=== PATIENT | male | born 1945 | race Hispanic/Latino ===

== ENCOUNTER 2019-02-04 05:30 | Day surgery (SDC) | payer MEDICARE ==
[~2019-02-04] VITALS: Ht 162.6 cm; Wt 85.3 kg
[2019-02-04] MEDS ORDERED: SODIUM CHLORIDE 0.9% 1000ML 1,000 ML IV ONE (05:43)
--- NOTE | 2019-02-04 06:30 | NUR ---
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 REPORT GIVEN TO LUCIAN IN ER
[2019-02-04] MEDS ORDERED: HYDR25TA PO (06:33)
[2019-02-04] MEDS ORDERED: CLOP75TA14 PO (06:33)
[2019-02-04] MEDS ORDERED: FLUO-126 PO (06:33)
[2019-02-04] MEDS ORDERED: EMPA10TA PO (09:54)
[2019-02-04] MEDS ORDERED: ERGO500014 PO (09:54)
[2019-02-04] MEDS ORDERED: METF-444 PO (09:54)
[2019-02-04] MEDS ORDERED: TAMS0.4C32 PO (09:54)
[2019-02-04] MEDS ORDERED: FOLI1TAB15 PO (09:54)
[2019-02-04] MEDS ORDERED: BENA40TA9 PO (09:54)
[2019-02-04] MEDS ORDERED: ALBU18HF7 IH (09:54)
[2019-02-04] MEDS ORDERED: ESOM40CA PO (09:54)
[2019-02-04] MEDS ORDERED: AMLO5TAB9 PO (09:54)
[2019-02-04] MEDS ORDERED: DUTA.5 PO (09:54)
[2019-02-04] MEDS ORDERED: GLIP5TAB11 PO (09:54)
[2019-02-04] MEDS ORDERED: MEMA10TA11 PO (09:54)
[2019-02-04] MEDS ORDERED: LINA5TAB PO (09:54)
[2019-02-04] MEDS ORDERED: FERS325 PO (09:54)
[2019-02-04] MEDS ORDERED: ATOR40TA71 PO (09:54)
[2019-02-04] MEDS ORDERED: EZET10 PO (09:54)
[2019-02-04] MEDS ORDERED: METO-408 PO (09:54)
== END 2019-02-04 06:45 ==
LOC: ENDO 05:30 → DAH 05:30 → ENDO 06:45
PROVIDERS: ATTEND Internal Medicine
DX: Z12.11 Encounter for screening for malignant neoplasm of colon (principal); Z53.8 Procedure and treatment not carried out for other reasons
CPT/HCPCS: 82948; J7030

== ENCOUNTER 2019-02-04 07:02 | Emergency (ER) | payer MEDICARE ==
[~2019-02-04 07:02] MED LIST: CLOP75TA14 PO; FLUO-126 PO; HYDR25TA PO
[2019-02-04 08:01] LABS: BASOPHILS % (AUTO) 0.9 % (0.0-5.0); EOSINOPHILS % (AUTO) 3.6 % (0.0-8.0); HEMATOCRIT 38.6 % (42-54); LYMPHOCYTES % (AUTO) 22.1 % (21.0-51.0); MEAN CORPUSCULAR HGB CONC 33.2 g/dL (32.0-36.0); MEAN CORPUSCULAR VOLUME 84.3 fL (79-99); MONOCYTES % (AUTO) 8.1 % (3.0-13.0); NEUTROPHILS % (AUTO) 65.3 % (40.0-77.0); NUCLEATED RED BLOOD CELLS 0.1 % (0.0-0.19); PLATELET COUNT (AUTO) 204 K/uL (130-400); RED BLOOD CELL COUNT(AUTO) 4.58 MIL/uL (4.50-6.20); RED CELL DISTRIBUTION WIDTH 14.9 % (11.0-15.5); WHITE BLOOD COUNT (AUTO) 7.7 K/uL (4.8-10.8)
[2019-02-04 08:18] LABS: CREATININE 1.4 mg/dL (0.5-1.5); POTASSIUM 3.8 mmol/L (3.5-5.1)
[2019-02-04 08:25] LABS: ALBUMIN 2.6 g/dL (3.5-5.0); BILIRUBIN,TOTAL 0.3 mg/dL (0.2-1.0); TOTAL PROTEIN, SERUM 7.1 g/dL (6.0-8.3)
[2019-02-04 08:26] LABS: CREATINE KINASE, TOTAL 48 U/L (21-232); MYOGLOBIN 72 ng/mL (10-92); TROPONIN I < 0.04 ng/mL (0.00-0.06)
[2019-02-04] MEDS ORDERED: METF-444 PO (09:54)
[2019-02-04] MEDS ORDERED: EZET10 PO (09:54)
[2019-02-04] MEDS ORDERED: MEMA10TA11 PO (09:54)
[2019-02-04] MEDS ORDERED: AMLO5TAB9 PO (09:54)
[2019-02-04] MEDS ORDERED: BENA40TA9 PO (09:54)
[2019-02-04] MEDS ORDERED: DUTA.5 PO (09:54)
[2019-02-04] MEDS ORDERED: FOLI1TAB15 PO (09:54)
[2019-02-04] MEDS ORDERED: METO-408 PO (09:54)
[2019-02-04] MEDS ORDERED: ESOM40CA PO (09:54)
[2019-02-04] MEDS ORDERED: LINA5TAB PO (09:54)
[2019-02-04] MEDS ORDERED: ATOR40TA71 PO (09:54)
[2019-02-04] MEDS ORDERED: EMPA10TA PO (09:54)
[2019-02-04] MEDS ORDERED: FERS325 PO (09:54)
[2019-02-04] MEDS ORDERED: GLIP5TAB11 PO (09:54)
[2019-02-04] MEDS ORDERED: ERGO500014 PO (09:54)
[2019-02-04] MEDS ORDERED: TAMS0.4C32 PO (09:54)
[2019-02-04] MEDS ORDERED: ALBU18HF7 IH (09:54)
== END 2019-02-04 09:33 | disposition home or self-care (01) ==
LOC: EDH 07:02
DX: I10 Essential (primary) hypertension (principal)
CPT/HCPCS: 36415; 71045; 80053; 82550; 83874; 84484; 85025; 93005